=== PATIENT | male | born 1990 | race Caucasian/White ===

== ENCOUNTER 2018-02-25 09:57 | Emergency (ER) | payer MEDICAID ==
[~2018-02-25] VITALS: Ht 175.3 cm; Wt 55.0 kg
[~2018-02-25 09:57] MED LIST: HYDR-4383 PO; NO HOME MEDS; ONDA4TAB6 PO
[2018-02-25] MEDS ORDERED: normal saline 1000ML IV soln IVB ONE (10:55)
[2018-02-25] MEDS ORDERED: pantoprazole 40 MG vial IV ONE (10:55)
[2018-02-25] MEDS ORDERED: ondansetron/PF 4mg/2ml inj IV ONE (10:55)
[2018-02-25] MEDS ORDERED: proCHLORperazine 10 MG/2 ml inj IV ONE (10:55)
[2018-02-25] MEDS ORDERED: famotidine/PF 10 mg/ml inj IV ONE (10:55)
[2018-02-25 11:40] LABS: BASOPHILS # (AUTO) 0.2 X10'3 (0-0.2); BASOPHILS % (AUTO) 0.8 % (0-1); EOSINOPHILS % (AUTO) 0 % (0-6); HEMATOCRIT 51.5 % (42.0-52.0); HEMOGLOBIN 17.2 g/dl (14.0-17.9); LYMPHOCYTES # (AUTO) 0.9 X10'3 (1.1-4.8); LYMPHOCYTES % (AUTO) 4.2 % (21-51); MEAN CORPUSCULAR HEMOGLOBIN 32.8 PG (27.0-31.0); MEAN CORPUSCULAR HGB CONC 33.5 % (33.0-36.5); MEAN CORPUSCULAR VOLUME 97.9 FL (78-98); MEAN PLATELET VOLUME 7.3 FL (7.4-10.4); MONOCYTES # (AUTO) 1.5 X10'3 (0-0.9); MONOCYTES % (AUTO) 7.1 % (2-12); NEUTROPHILS # (AUTO) 18.1 X10'3 (1.8-7.7); NEUTROPHILS % (AUTO) 87.9 % (42-75); PLATELET COUNT 234 X10'3 (140-440); RED BLOOD COUNT 5.25 X10'6 (4.70-6.10); RED CELL DISTRIBUTION WIDTH 11.9 % (11.5-14.5); WHITE BLOOD COUNT 20.7 X10'3 (4.5-11.0)
[2018-02-25] MEDS ORDERED: LORazepam 2 mg/ml vial IV ONE ×2 (11:45→12:40)
[2018-02-25 11:54] LABS: ALANINE AMINOTRANSFERASE 40 U/L (12-78); ALBUMIN 4.5 G/DL (3.4-5.0); ALBUMIN/GLOBULIN RATIO 1.3 (1.1-1.5); ALKALINE PHOSPHATASE 82 IU/L (46-116); ANION GAP 29 (8-16); ASPARTATE AMINO TRANSFERASE 22 U/L (10-37); BILIRUBIN,TOTAL 1.4 MG/DL (0.1-1.0); BLOOD UREA NITROGEN 22 MG/DL (7-18); CHLORIDE 98 MMOL/L (99-107); CREATININE 1.22 MG/DL (0.60-1.10); GLUCOSE 204 MG/DL (70-104); LACTATE DEHYDROGENASE 123 U/L (85-227); LIPASE 80 U/L (73-393); POTASSIUM 4.6 MMOL/L (3.5-5.1); SODIUM 141 MMOL/L (135-145); TOTAL PROTEIN 8.1 G/DL (6.4-8.2); eGFR 71 ML/MIN
[2018-02-25 11:56] LABS: TOTAL CARBON DIOXIDE 14.3 MMOL/L (24-32)
[2018-02-25 11:59] LABS: CALCIUM 8.1 MG/DL (8.5-10.1)
[2018-02-25] MEDS ORDERED: diphenhydrAMINE 50 mg/ml inj IV ONE (12:40)
[2018-02-25] MEDS ORDERED: normal saline 1000ml 1,000 ML IV ONE ×2 (12:40→15:05)
[2018-02-25 13:19] LABS: CLARITY,URINE CLEAR (Clear); COLOR,URINE YELLOW (Yellow); PH,URINE 5.5 (4.8-8.0); UA COLLECTION TYPE URINAL
[2018-02-25 13:20] LABS: GLUCOSE, URINE NEGATIVE (Neg); KETONES,URINE >=80 mg/dl (Neg); LEUKOCYTE ESTERASE ,URINE NEGATIVE (Neg); NITRITES, URINE NEGATIVE (Neg); OCCULT BLOOD,URINE TRACE-LYSED (Neg); PROTEIN,URINE 100 mg/dl (Neg); UROBILINOGEN,URINE 0.2 E.U/dL (0.2-1.0)
[2018-02-25 13:31] LABS: BACTERIA,URINE NONE SEEN /HPF (Neg); MUCUS STRANDS NONE SEEN /LPF (Neg); RBC,URINE NONE SEEN /HPF (0-2); SQUAMOUS EPITHELIAL CELL,UR NONE SEEN /LPF (FEW); WBC,URINE NONE SEEN /HPF (0-4)
[2018-02-25] MEDS ORDERED: ONDA8TAB6 PO (14:52)
[2018-02-25] MEDS ORDERED: PANT20TA2 PO (14:52)
[2018-02-25 15:42] LABS: ALANINE AMINOTRANSFERASE 32 U/L (12-78); ALBUMIN 3.7 G/DL (3.4-5.0); ALBUMIN/GLOBULIN RATIO 1.2 (1.1-1.5); ALKALINE PHOSPHATASE 66 IU/L (46-116); ANION GAP 18 (8-16); ASPARTATE AMINO TRANSFERASE 19 U/L (10-37); BILIRUBIN,TOTAL 1.1 MG/DL (0.1-1.0); BLOOD UREA NITROGEN 19 MG/DL (7-18); BUN/CREATININE RATIO 21.6 (5.4-32.0); CALCIUM 7.7 MG/DL (8.5-10.1); CHLORIDE 105 MMOL/L (99-107); CREATININE 0.88 MG/DL (0.60-1.10); GLUCOSE 130 MG/DL (70-104); POTASSIUM 4.5 MMOL/L (3.5-5.1); SODIUM 139 MMOL/L (135-145); TOTAL CARBON DIOXIDE 16.5 MMOL/L (24-32); TOTAL PROTEIN 6.7 G/DL (6.4-8.2); eGFR > 90 ML/MIN
[2018-02-25 15:56] VITALS: BP 137/73
== END 2018-02-25 16:11 | disposition home or self-care (01) ==
LOC: ER 09:58
DX: E87.2 Acidosis (principal); E86.0 Dehydration; F10.20 Alcohol dependence, uncomplicated; F12.90 Cannabis use, unspecified, uncomplicated; Z79.899 Other long term (current) drug therapy; Y90.9 Presence of alcohol in blood, level not specified
CPT/HCPCS: 36415; 80053; 81001; 82800; 83615; 83690; 85025; 93005; 96361; 96374; 96375; 96376; 99284; C9113; J0780; J1200; J2060; J2405; J3490; J7030

== ENCOUNTER 2024-07-26 14:25 | Emergency (ER) | payer MEDICAID ==
[~2024-07-26] VITALS: Ht 175.3 cm; Wt 70.5 kg
[~2024-07-26 14:25] MED LIST changes: +ONDA8TAB6 PO; +PANT20TA2 PO
[2024-07-26 14:54] VITALS: BP 125/87; PULSE 90; RESP 18; O2SAT 99
--- NOTE | 2024-07-26 14:57 | Physician Documentation ---
History of Present Illness Stated Complaint: MULTIPLE MED COMPLAINTS Primary Medical Doctor: none HPI This is a 33-year-old male who presents with concern for constipation, patient reports that he has not had a normal bowel movement in six days, patient reports he is passing a small amount of soft stool though feels that his stomach is very bloated distended, patient reports no abdominal pain though pressure in the abdomen with some occasional pain to his left lower quadrant that radiates to his back. Patient reports that he has tried Ex-Lax and milk of magnesia without significant bowel movement, patient reports the previous two Ex-Lax and milk of magnesia his stools were hard and normally has quite hard stools. She reports that he has been hydrating very well though does have concern that his diet is low on fiber. Patient reports that he is still passing gas and has not had vomiting. Patient reports no history of abdominal surgery or significant medical history. Patient reports no fever, chills, or other systemic symptoms. Patient reports no other acute symptoms or concerns. Medication Reconciliation Allergies: Coded Allergies: No Known Allergies (Unverified , 08/13/10) Scheduled Bisacodyl (Bisacodyl), 1 SUPP RC DAILY Docusate Sodium (Stool Softener), 1 CAP PO DAILY Ondansetron Hcl (Zofran), 1 TAB PO Q6H Ondansetron Hcl (Zofran), 1 TAB PO Q8H Pantoprazole Sodium (Protonix), 1 TAB PO DAILY Polyethylene Glycol 3350 (Fpr0023), 17 GM PO DAILY Scheduled PRN Hydrocodone/Acetaminophen ([place] 5-325 Tablet), 1 TABLET PO Q4H PRN for pain Ondansetron Hcl (Zofran), 1 TABLET PO Q6H PRN for nausea Miscellaneous Medications Home Med List (No Home Medications), (Reported) Past Medical History Past Medical History: No Pertinent History Past Surgical History: no surgical history Alcohol Use: Alcoholic Drug Use: marijuana Lives with: Family Lives In: Home Occupation: employed Review of Systems ROS Constipation as stated above in the HPI, otherwise all systems are reviewed and negative. Physical Exam Physical Exam VITALS: Reviewed and as above. GENERAL: Alert, nontoxic appearing, no apparent distress. HEENT: Moist mucous membranes RESPIRATORY: No increased work of breathing, no respiratory distress, speaking in full clear sentences, clear lung sounds in all [place] CV: Regular rate and rhythm no murmur BACK: No CVA tenderness GI: Soft, nontender, no rebound, no guarding, bowel sounds hyperactive, abdomen mildly distended Progress EKG/XRAY/CT/US/VASC/MRI CT : Impression EXAM: CT Abdomen and Pelvis With Intravenous Contrast CLINICAL INDICATION: generalized abdominal pain TECHNIQUE: Axial computed tomography images of the abdomen and pelvis with intravenous contrast. This CT exam was performed using one or more of the following dose reduction techniques: automated exposure control, adjustment of the mA and/or kV according to patient size, and/or use of iterative reconstruction technique. CONTRAST: COMPARISON: None FINDINGS: LUNG BASES: Unremarkable. No mass. No consolidation. MEDIASTINUM: Small esophageal hiatal hernia. ABDOMEN: LIVER: Enlarged fatty liver. GALLBLADDER AND BILE DUCTS: Unremarkable. No calcified stones. No ductal dilation. PANCREAS: Unremarkable. No mass. No ductal dilation. SPLEEN: Unremarkable. No splenomegaly. ADRENALS: Unremarkable. No mass. KIDNEYS AND URETERS: Unremarkable. No stones within either kidney. No hydronephrosis. STOMACH AND BOWEL: Fecal retention in the colon consistent with constipation. No obstruction. No mucosal thickening. PELVIS: APPENDIX: Normal appendix. BLADDER: Unremarkable. No mass. REPRODUCTIVE: Unremarkable as visualized. ABDOMEN and PELVIS: INTRAPERITONEAL SPACE: Unremarkable. No free air. No significant fluid collection. BONES/JOINTS: No acute fracture. No dislocation. SOFT TISSUES: Umbilical hernia containing fat. VASCULATURE: Unremarkable. No abdominal aortic aneurysm. LYMPH NODES: Unremarkable. No enlarged lymph nodes. OTHER FINDINGS: . . IMPRESSION: 1. Normal appendix. 2. Small esophageal hiatal hernia. 3. Fecal retention in the colon consistent with constipation. 4. No obstructive uropathy. 5. Umbilical hernia containing fat. Electronically Signed by:CHARU GOMEZ MD Date & Time: 07/26/241644 Dictated by: CHARU GOMEZ MD Dictation date and time: 07/26/241644 I have reviewed and agree with the radiology report. I have reviewed and interpreted the imaging as: No intraperitoneal free air, no air-fluid levels Medical Decision Making Findings This 33-year-old male presented with concern for constipation, patient reported only passing small amounts of soft stool after attempting to treat constipation at home with Ex-Lax and milk of magnesia, patient reported no significant abdominal pain though reported a feeling of abdominal bloating which was reassuring. Patient's physical exam was benign without peritoneal signs and patient was hemodynamically stable without evidence of systemic illness or sepsis. CT findings were consistent with constipation. A discussion with the patient the option of attempting to treat constipation in the department though patient would prefer attempting to treat constipation in the comfort of his own home, patient is appropriate for outpatient follow up and will be discharged with a series of stool softeners and laxatives along with home care instructions which he verbalized understanding of and agreement with plan. Patient provided careful return to care precautions which he verbalized understanding of. Differential Dx:Considerations: Include: Bowel obstruction, Constipation, Diverticular disease, Esophagitis, Gastritis/PUD, Inflammatory BD, Ischemic bowel, Urinary tract infection, Urolithiasis Departure Disposition: 01 HOME / SELF CARE / HOMELESS Impression: Primary Impression: Constipation Qualified Codes: K59.00 - Constipation, unspecified Condition: Improved Discharge Instructions: Constipation, Adult Additional Instructions: Please use the prescribed laxatives until you have a considerable bowel movement (MiraLax and suppository) then continue taking the stool softener after this, I recommend you add a fiber supplement to your diet, stay well hydrated. You are unable to have a bowel movement after these medications please return to the emergency department. Please follow up with your primary care provider in the next few days. Please return to the emergency department for any new or worsening concerning symptoms including worsening stomach pain, if you develop vomiting, or if you develop a fever. Referrals: NO PRIMARY CARE PROVIDER (PCP) Prescriptions Docusate Sodium (Stool Softener) 100 Mg Capsule 1 CAP PO DAILY for 28 Days, #28 CAP 0 Refills Prov: GURINDER EDMONDS [employer]CHNICIAN 07/26/24 Polyethylene Glycol 3350 ([id number]) 17 Gram/Dose Powder 17 GM PO DAILY for constipation for 10 Days, #170 GM 0 Refills Prov: GURINDER EDMONDS [employer] TECHNICIAN 07/26/24 Bisacodyl (Bisacodyl) 10 Mg Supp.rect 1 SUPP RC DAILY for constipation for 4 Days, #4 SUPP 0 Refills Prov: GURINDER EDMONDS [employer] TECHNICIAN 07/26/24 Education Educated: Patient Educated regarding: diagnosis, treatment, prognosis, need for follow up Additional Comment Medical Screen Exam 33 y/o male with c/o abdominal pain generalized associated with constipation last BM was a week ago. Pain in abdomen comes and goes average severity is 5/10. Took milk of magnesia two days in a row and then took ex lax for past three days. Has had two "very small BM that are definitely not normal." Patient denies nausea, vomiting, fever, chills. No h/o abdominal surgeries. No h/o constipation. Does not take narcotics. Patient states he also has shortness of breath over last couple of days. He believes his shortness of breath is because "everything is so full in my stomach abdomen I can't get a full breath." PEx: A/P: 1. Signature Scribe Signature: No scribe Attestation: The note accurately reflects work and decisions made by me.CASSIE Bernardo 07/27/24 02:15 ABRAM SUTTON July 26, 2024 14:57 GURINDER EDMONDS July 26, 2024 16:54
[2024-07-26] MEDS ORDERED: iohexol 300mg/ml 100ml inj. ONE (15:04)
[2024-07-26 15:16] LABS: BASOPHILS # (AUTO) 0.1 X10'3 (0-0.2); BASOPHILS % (AUTO) 1.3 % (0-1); EOSINOPHILS # (AUTO) 0.2 X10'3 (0-0.9); EOSINOPHILS % (AUTO) 2.5 % (0-6); HEMATOCRIT 45.4 % (42.0-52.0); HEMOGLOBIN 15.9 g/dl (14.0-17.9); LYMPHOCYTES # (AUTO) 2.9 X10'3 (1.1-4.8); MEAN CORPUSCULAR VOLUME 91.2 FL (78-98); MEAN PLATELET VOLUME 7.3 FL (7.4-10.4); MONOCYTES # (AUTO) 0.8 X10'3 (0-0.9); MONOCYTES % (AUTO) 10.1 % (2-12); NEUTROPHILS # (AUTO) 4.1 X10'3 (1.8-7.7); NEUTROPHILS % (AUTO) 50.1 % (42-75); PLATELET COUNT 226 X10'3 (140-440); RED BLOOD COUNT 4.98 X10'6 (4.70-6.10); RED CELL DISTRIBUTION WIDTH 12.6 % (11.5-14.5); WHITE BLOOD COUNT 8.1 X10'3 (4.5-11.0)
[2024-07-26 15:24] LABS: ALBUMIN 4.5 G/DL (3.4-5.0); ANION GAP 4 (8-16); BLOOD UREA NITROGEN 9 MG/DL (7-18); BUN/CREATININE RATIO 11.7 (10.0-20.0); CALCIUM 9.3 MG/DL (8.5-10.1); CHLORIDE 105 MMOL/L (99-107); CREATININE 0.77 MG/DL (0.60-1.10); GLUCOSE 94 MG/DL (70-104); POTASSIUM 4.3 MMOL/L (3.5-5.1); SODIUM 140 MMOL/L (135-145); eCRCL 135 ML/MIN; eGFR > 90 ML/MIN
--- NOTE | 2024-07-26 16:47 | RADIOLOGY REPORT ---
EXAM: CT Abdomen and Pelvis With Intravenous Contrast CLINICAL INDICATION: generalized abdominal pain TECHNIQUE: Axial computed tomography images of the abdomen and pelvis with intravenous contrast. Th is CT exam was performed using one or more of the following dose reduction techniques: automated exp osure control, adjustment of the mA and/or kV according to patient size, and/or use of iterative estee nstruction technique. CONTRAST: COMPARISON: None FINDINGS: LUNG BASES: Unremarkable. No mass. No consolidation. MEDIASTINUM: Small esophageal hiatal hernia. ABDOMEN: LIVER: Enlarged fatty liver. GALLBLADDER AND BILE DUCTS: Unremarkable. No calcified stones. No ductal dilation. PANCREAS: Unremarkable. No mass. No ductal dilation. SPLEEN: Unremarkable. No splenomegaly. ADRENALS: Unremarkable. No mass. KIDNEYS AND URETERS: Unremarkable. No stones within either kidney. No hydronephrosis. STOMACH AND BOWEL: Fecal retention in the colon consistent with constipation. No obstruction. No mucosal thickening. PELVIS: APPENDIX: Normal appendix. BLADDER: Unremarkable. No mass. REPRODUCTIVE: Unremarkable as visualized. ABDOMEN and PELVIS: INTRAPERITONEAL SPACE: Unremarkable. No free air. No significant fluid collection. BONES/JOINTS: No acute fracture. No dislocation. SOFT TISSUES: Umbilical hernia containing fat. VASCULATURE: Unremarkable. No abdominal aortic aneurysm. LYMPH NODES: Unremarkable. No enlarged lymph nodes. OTHER FINDINGS: . . IMPRESSION: 1. Normal appendix. 2. Small esophageal hiatal hernia. 3. Fecal retention in the colon consistent with constipation. 4. No obstructive uropathy. 5. Umbilical hernia containing fat.
[2024-07-26] MEDS ORDERED: POLY510P31 PO (17:24)
[2024-07-26] MEDS ORDERED: BISA10SU11 RC (17:24)
[2024-07-26] MEDS ORDERED: DOCU-337 PO (17:24)
[2024-07-26 17:49] VITALS: TEMP 98.6
== END 2024-07-26 17:50 | disposition home or self-care (01) ==
LOC: ER 14:26
DX: K59.00 Constipation, unspecified (principal); F12.90 Cannabis use, unspecified, uncomplicated; F10.90 Alcohol use, unspecified, uncomplicated; Z79.899 Other long term (current) drug therapy; Y90.9 Presence of alcohol in blood, level not specified
CPT/HCPCS: 36415; 74177; 80048; 85025; 99285; Q9967